=== PATIENT | female | born 1995 | race African-American/Black ===

== ENCOUNTER 2017-04-26 11:47 | Emergency (ER) | payer OTHER ==
[~2017-04-26] VITALS: Ht 175.3 cm; Wt 77.1 kg
[2017-04-26 12:27] LABS: BILIRUBIN,URINE NEGATIVE (NEGATIVE); KETONES,URINE NEGATIVE (NEGATIVE); LEUKOCYTE ESTERASE ,URINE NEGATIVE (NEGATIVE); NITRITE,URINE NEGATIVE (NEGATIVE); PROTEIN,URINE DIPSTICK NEGATIVE (NEGATIVE); URINE UROBILINOGEN 0.2 mg/dL (0.2 - 1)
[2017-04-26 12:37] LABS: CLARITY,URINE CLEAR (CLEAR); COLOR,URINE YELLOW (YELLOW)
[2017-04-26 12:45] LABS: BASOPHILS % 0.2 % (0.0-1.0); EOSINOPHILS # (AUTO) 0.1 (0.0-0.4); EOSINOPHILS % 1.5 % (0.0-6.0); HEMATOCRIT 38.1 % (34.2-44.1); HEMOGLOBIN 12.6 g/dL (12.0-16.0); LYMPHOCYTES # (AUTO) 1.2 (1.0-3.2); LYMPHOCYTES % 24.2 % (18.0-39.1); MEAN CORPUSCULAR HEMOGLOBIN 28.9 pg (28-32); MEAN CORPUSCULAR HGB CONC 33.1 g/dL (31-35); MEAN CORPUSCULAR VOLUME 87.4 fL (81-99); MONOCYTES # (AUTO) 0.8 (0.2-0.8); MONOCYTES % 17.6 % (4.4-11.3); NEUTROPHILS # (AUTO) 2.7 (2.1-6.9); NEUTROPHILS % 56.3 % (38.7-80.0); PLATELET COUNT 238 x10e3/uL (140-360); RED BLOOD COUNT 4.36 x10e6/uL (3.6-5.1); RED CELL DISTRIBUTION WIDTH 13.1 % (11.7-14.4)
[2017-04-26 12:48] LABS: EPITHELIAL CELLS,URINE RARE /LPF; PREGNANCY TEST, URINE POSITIVE (NEGATIVE)
[2017-04-26 13:02] LABS: AMYLASE 70 U/L (25-125)
[2017-04-26 13:08] LABS: ALANINE AMINOTRANSFERASE 16 IU/L (0-55); ALBUMIN 3.9 g/dL (3.5-5.0); ALBUMIN/GLOBULIN RATIO 1.2 (0.8-2.0); ALKALINE PHOSPHATASE 81 IU/L (40-150); BLOOD UREA NITROGEN 8 mg/dL (7-26); BUN/CREATININE RATIO 11 (6-25); CALCIUM 9.1 mg/dL (8.4-10.2); CARBON DIOXIDE 26 mmol/L (22-29); CHLORIDE 108 mmol/L (98-107); EST GLOMERULAR FILTRATION RATE > 60 ML/MIN (60-); GLUCOSE 78 mg/dL (74-118); SODIUM 141 mmol/L (136-145)
[2017-04-26 13:25] LABS: LIPASE 30 U/L (8-78)
[2017-04-26] MEDS ORDERED: REGLAN10 MG PO (14:34)
== END 2017-04-26 14:49 | disposition home or self-care (01) ==
LOC: ER 11:47
DX: R10.84 Generalized abdominal pain (principal)
CPT/HCPCS: 36415; 80053; 81001; 81025; 82150; 83690; 84702; 85025; 99283

== ENCOUNTER 2019-07-30 12:51 | Emergency (ER) | payer BC, OTHER ==
[~2019-07-30] VITALS: Ht 175.3 cm; Wt 77.1 kg
[~2019-07-30 12:51] MED LIST: REGLAN10 MG PO
--- OUTSIDE RECORDS SUMMARY | 2019-07-30 12:54 | XMS REPORT ---
Author Author [facility] Organization [facility] Address Unknown Phone Unavailable Care Team Providers Care Electronics System Mechanic Name Role Phone Tanmay HAWLEY Unavailable Unavailable Problems This patient has no known problems. Allergies, Adverse Reactions, Alerts This patient has no known allergies or adverse reactions. Medications This patient has no known medications. Results Test Description Test Time Test Comments Text Results Atomic Results Result Comments U/S, , COMPLETE, >/=14 WEEKS 2017-07-14 19:23:00 [place] son for exam:- >ABDOMINAL PAIN FINAL REPORT Obs tetrics ultrasound, July 14, 2017 Clinical History: Abdomen pain Discussion: Sonographic evaluation of the gravid uterus is performed transabdominally. A single fetus is identified, in variable presentation. The amniotic/chorionic sac was visualized. The amniotic fluid volume is normal by visual inspection. The amniotic fluid index is 9.31. The maternal uterus and ovaries are grossly unremarkable. The cervix measures 5.0 cm in length, within normal limits. The placenta is posterior and grade zero. The placental cord insertion site is visualized. The re is no placenta previa. A three-vessel cord was visualized. A four-chamber heart was visualized and a heart rate was documented 174 bpm. measurements: BPD3.16 cm(16w zerod + / - one week 2 day)HC12.45 cm16 weeks 2 days + / - 1 week 2 daysAC9.74 cm(15w sixd + / - one week 5 days)FL 2.1 cm(16w twod + / - one week 3 day)SFR023 gm + / - 21 gm, five + / - 1 oz EGA (Sonographic)16w oned + / - onew threedEGA (LMP)16 w three d Impression: Stoner intrauterine gestation. heart tones were documented at one 74 bpm with a four chamber heart visualized. A three-vessel cord was visualized. The measurements correspond to the patient's last menstrual period data gestational age 16 weeks 3 days. Signed: Marisel Rivas MDReport Verified Date/Time: 07/14/2017 19:23:09 Reading Location: [address] Consult Reading Room PREP 2017-07-14 15:32:00 WBC WET PREP (BEAKER) (test code = 528) Few white blood cells se en CLUE CELLS (BEAKER) (test code = 526) No clue cells seen YEAST WET PREP (BEAKER) (test code = 530) No budding yeast seen TRICH WET PREP (BEAKER) (test code = 531) No Trichomonas seen BACT WET PREP (BEAKER) (test code = 532) Many bacteria seen HCG, QUANTITATIVE, [id number] 13:54:00* Test Item Value Reference Range Comments GONADOTROPIN, CHORIONIC (HCG) QUANT (BEAKER) (test code = 64 9) 60810 mIU/mL 0-10 Non- Females: <10 mIU/mL Females: Gestation Age Reference Range(mIU/mL) 0.2-1 Week 5-50 1-2 Weeks 50-500 2-3 Weeks 100-5,000 3-4 Weeks 500-10,000 4-5 Weeks 1,000-50,000 5-6 Weeks 10,000-100,000 6-8 Weeks 15,000-200,000 2-3 Months 10,000-100,000 HEPATIC FUNCTION PANEL 2017-07-14 12:22:00* Test Item Value Reference Range Comments TOTAL PROTEIN (BEAKER) (test code = 770) 6.6 gm/dL 6.0-8.3 ALBUMIN (BEAKER) (test code = 1145) 3.8 g/dL 3.5-5.0 BILIRUBIN TOTAL (BEAKER) (test code = 377) 0.2 mg/dL 0.2-1 .2 BILIRUBIN DIRECT (BEAKER) (test code = 706) 0.1 mg/dL 0.1- 0.5 ALKALINE PHOSPHATASE (BEAKER) (test code = 346) 71 U/L 40-150 AST (SGOT) (BEAKER) (test code = 353) 19 U/L 5-34 ALT (SGPT) (BEAKER) (test code = 347) 15 U/L 6-55 BASIC METABOLIC [id number] 11:53:00* Test Item Value Reference Range Comments SODIUM (BEAKER) (test code = 381) 139 meq/L 136-145 POTASSIUM (BEAKER) (test code = 379) 3.8 meq/L 3.5-5.1 CHLORIDE (BEAKER) (test code = 382) 108 meq/L 98-107 CO2 (BEAKER) (test code = 355) 26 meq/L 22-29 BLOOD UREA NITROGEN (BEAKER) (test code = 354) 4 mg/dL 7 -21 CREATININE (BEAKER) (test code = 358) 0.62 mg/dL 0.57-1.25 GLUCOSE RANDOM (BEAKER) (test code = 652) 88 mg/dL 70-105 CALCIUM (BEAKER) (test code = 697) 9.4 mg/dL 8.4-10.2 EGFR (BEAKER) (test code = 1092) 149 mL/min/1.73 sq m ESTIMATED GFR IS NOT ACCURATE CREATININE CLEARANCE IN PREDICTING GLOMERULAR FILTRATION RATE. ESTIMATED GFR IS NOT APPLICABLE FOR DIALYSIS PATIENTS. URINALYSIS W/ REFLEX URINE [id number] 11:49:00* Test Item Value Reference Range Comments COLOR (BEAKER) (test code = 470) Light Yellow CLARITY (BEAKER) (test code = 469) Clear SPECIFIC GRAVITY UA (BEAKER) (test code = 468) 1.006 1 .001-1.035 PH UA (BEAKER) (test code = 467) 7.0 5.0-8.0 PROTEIN UA (BEAKER) (test code = 464) Negative Negative GLUCOSE UA (BEAKER) (test code = 365) Negative Negative KETONES UA (BEAKER) (test code = 371) Negative Negative BILIRUBIN UA (BEAKER) (test code = 462) Negative Negative BLOOD UA (BEAKER) (test code = 461) Negative Negative NITRITE UA (BEAKER) (test code = 465) Negative Negative LEUKOCYTE ESTERASE UA (BEAKER) (test code = 466) Small Negative UROBILINOGEN UA (BEAKER) (test code = 463) 0.2 mg/dL 0.2-1 .0 RBC UA (BEAKER) (test code = 519) 0 /HPF WBC UA (BEAKER) (test code = 520) 2 /HPF BACTERIA (BEAKER) (test code = 517) Few SQUAMOUS EPITHELIAL (BEAKER) (test code = 516) 5 /HPF SOURCE(BEAKER) (test code = 0215) CBC W/PLT COUNT & AUTO [id number] 11:36:00* Test Item Value Reference Range Comments WHITE BLOOD CELL COUNT (BEAKER) (test code = 775) 7.0 K/ L 3.5-10.5 RED BLOOD CELL COUNT (BEAKER) (test code = 761) 4.00 M/ L 3.93-5.22 HEMOGLOBIN (BEAKER) (test code = 410) 11.7 GM/DL 11.2-15.7 HEMATOCRIT (BEAKER) (test code = 411) 34.7 % 34.1-44.9 MEAN CORPUSCULAR VOLUME (BEAKER) (test code = 753) 86.8 fL 79.4-94.8 MEAN CORPUSCULAR HEMOGLOBIN (BEAKER) (test code = 751) 29.3 pg 25.6-32.2 MEAN CORPUSCULAR HEMOGLOBIN CONC (BEAKER) (test code = 752) 33.7 GM/DL 32.2-35.5 RED CELL DISTRIBUTION WIDTH (BEAKER) (test code = 412) 13.2 % 11.7-14.4 PLATELET COUNT (BEAKER) (test code = 756) 173 K/CU MM 150-45 0 MEAN PLATELET VOLUME (BEAKER) (test code = 754) 11.3 fL 9.4-12.3 NUCLEATED RED BLOOD CELLS (BEAKER) (test code = 413) 0 /100 WBC 0-0 NEUTROPHILS RELATIVE PERCENT (BEAKER) (test code = 429) 73 % LYMPHOCYTES RELATIVE PERCENT (BEAKER) (test code = 430) 16 % MONOCYTES RELATIVE PERCENT (BEAKER) (test code = 431) 10 % EOSINOPHILS RELATIVE PERCENT (BEAKER) (test code = 432) 1 % BASOPHILS RELATIVE PERCENT (BEAKER) (test code = 437) 0 % NEUTROPHILS ABSOLUTE COUNT (BEAKER) (test code = 670) 5.07 K/ L 1.56-6.13 LYMPHOCYTES ABSOLUTE COUNT (BEAKER) (test code = 414) 1.12 K/ L 1.18-3.74 MONOCYTES ABSOLUTE COUNT (BEAKER) (test code = 415) 0.72 K/ L 0.24-0.36 EOSINOPHILS ABSOLUTE COUNT (BEAKER) (test code = 416) 0.04 K/ L 0.04-0.36 BASOPHILS ABSOLUTE COUNT (BEAKER) (test code = 417) 0.02 K/ L 0.01-0.08 IMMATURE GRANULOCYTES-RELATIVE PERCENT (BEAKER) (test code = 280 1) 0 % 0-1 URINALYSIS W/ [id number] 19:27:00* Test Item Value Reference Range Comments COLOR (BEAKER) (test code = 470) Yellow CLARITY (BEAKER) (test code = 469) Clear SPECIFIC GRAVITY UA (BEAKER) (test code = 468) 1.020 1 .001-1.035 PH UA (BEAKER) (test code = 467) 7.5 5.0-8.0 PROTEIN UA (BEAKER) (test code = 464) 20 mg/dL Negative GLUCOSE UA (BEAKER) (test code = 365) Negative Negative KETONES UA (BEAKER) (test code = 371) Negative Negative BILIRUBIN UA (BEAKER) (test code = 462) Negative Negative BLOOD UA (BEAKER) (test code = 461) Large Negative NITRITE UA (BEAKER) (test code = 465) Negative Negative LEUKOCYTE ESTERASE UA (BEAKER) (test code = 466) Negative Negative UROBILINOGEN UA (BEAKER) (test code = 463) 0.2 mg/dL 0.2-1 .0 RBC UA (BEAKER) (test code = 519) 41 /HPF WBC UA (BEAKER) (test code = 520) 2 /HPF BACTERIA (BEAKER) (test code = 517) Rare MUCUS (BEAKER) (test code = 1574) Many SQUAMOUS EPITHELIAL (BEAKER) (test code = 516) 6 /HPF SOURCE(BEAKER) (test code = 2795) Urine, Clean Catch BASIC METABOLIC [id number] 17:42:00* Test Item Value Reference Range Comments SODIUM (BEAKER) (test code = 381) 141 meq/L 136-145 POTASSIUM (BEAKER) (test code = 379) 4.3 meq/L 3.5-5.1 CHLORIDE (BEAKER) (test code = 382) 109 meq/L 98-107 CO2 (BEAKER) (test code = 355) 22 meq/L 22-29 BLOOD UREA NITROGEN (BEAKER) (test code = 354) 7 mg/dL 7 -21 CREATININE (BEAKER) (test code = 358) 0.82 mg/dL 0.57-1.25 GLUCOSE RANDOM (BEAKER) (test code = 652) 91 mg/dL 70-105 CALCIUM (BEAKER) (test code = 697) 9.7 mg/dL 8.4-10.2 EGFR (BEAKER) (test code = 1092) 109 mL/min/1.73 sq m ESTIMATED GFR IS NOT ACCURATE CREATININE CLEARANCE IN PREDICTING GLOMERULAR FILTRATION RATE. ESTIMATED GFR IS NOT APPLICABLE FOR DIALYSIS PATIENTS. CBC W/PLT COUNT & AUTO [id number] 17:14:00* Test Item Value Reference Range Comments WHITE BLOOD CELL COUNT (BEAKER) (test code = 775) 5.6 K/ L 4.0-10.0 RED BLOOD CELL COUNT (BEAKER) (test code = 761) 5.00 M/ L 4.00-5.00 HEMOGLOBIN (BEAKER) (test code = 410) 14.8 GM/DL 12.0-15.0 HEMATOCRIT (BEAKER) (test code = 411) 42.9 % 36.0-45.0 MEAN CORPUSCULAR VOLUME (BEAKER) (test code = 753) 85.7 fL 82.0-99.0 MEAN CORPUSCULAR HEMOGLOBIN (BEAKER) (test code = 751) 29.5 pg 27.0-33.0 MEAN CORPUSCULAR HEMOGLOBIN CONC (BEAKER) (test code = 752) 34.4 GM/DL 32.0-36.0 RED CELL DISTRIBUTION WIDTH (BEAKER) (test code = 412) 13.1 % 10.3-14.2 PLATELET COUNT (BEAKER) (test code = 756) 233 K/CU MM 150-43 0 MEAN PLATELET VOLUME (BEAKER) (test code = 754) 8.4 fL 6.5-10.5 NUCLEATED RED BLOOD CELLS (BEAKER) (test code = 413) 0 /100 WBC 0-0 NEUTROPHILS RELATIVE PERCENT (BEAKER) (test code = 429) 56 % LYMPHOCYTES RELATIVE PERCENT (BEAKER) (test code = 430) 33 % MONOCYTES RELATIVE PERCENT (BEAKER) (test code = 431) 9 % EOSINOPHILS RELATIVE PERCENT (BEAKER) (test code = 432) 1 % BASOPHILS RELATIVE PERCENT (BEAKER) (test code = 437) 1 % NEUTROPHILS ABSOLUTE COUNT (BEAKER) (test code = 670) 3.17 K/ L 1.80-8.00 LYMPHOCYTES ABSOLUTE COUNT (BEAKER) (test code = 414) 1.84 K/ L 1.48-4.50 MONOCYTES ABSOLUTE COUNT (BEAKER) (test code = 415) 0.48 K/ L 0.00-1.30 EOSINOPHILS ABSOLUTE COUNT (BEAKER) (test code = 416) 0.06 K/ L 0.00-0.50 BASOPHILS ABSOLUTE COUNT (BEAKER) (test code = 417) 0.07 K/ L 0.00-0.20 0.00
--- OUTSIDE RECORDS SUMMARY | 2019-07-30 12:54 | XMS REPORT ---
Author Author Admin, Kari Kaitlyn Organization [facility] Address [address] [place] [address] Phone Allergies, Adverse Reactions, Alerts Allergy Name Reaction Description Start Date Severity Status Pr ovider No Known Allergies Yuko Munoz SPD MANAGER Conditions or Problems Problem Name Problem Code Onset Date Status Entry Date Provider Comment Standard Description Annotate Acute gastroenteritis 558.9 Active Blaire madrigal MD Other and unspecified noninfectious gastroenteritis and colitis Sinus congestion 478.19 Active Blaire Garnica MD Other disease of nasal cavity and sinuses Supervision, normal first V22.0 Active Dayanara Pop MD (res) Supervision of normal first Anxiety 300.00 Active Melvin Seymour MD Anxiety state, unspecified Depression, major 296.20 Active Melvin Caicedo Major depressive disorder, single episode, unspecified degree BMI 25.0-25.9 Active Blaire Garnica MD Body Mass Index 25.0-25.9, adult Overweight Active Blaire Garnica MD Overweight Fibrocystic breast changes 610.1 Active 6 Jana Caicedo.Andrew. Diffuse cystic mastopathy Crohn's disease of small AND large intestines 555.2 Active Dayanara Pop MD (res) Regional enterit is of small intestine with large intestine Managed by Dr. Dawkins and Dr. Jimenez at [facility], LEFT HAND 078.10 Active Jana Palomo D.O. Viral warts, unspecified Vaccination against influenza ICD-V04.81 Inacti ve Dayanara Pop MD (res) Depo Provera contraceptive, initial prescription ICD-V25.02 Inactive Anna Han MD (res) Dysmenorrhea ICD-625.3 Inactive Dayanara Pop MD (res) Irregular menstrual cycle 626.4 Inactive Yoshi Garnica MD Irregular menstrual cycle Menometrorrhagia 626.2 Inactive Blaire Garnica MD Excessive or frequent menstruation Menorrhagia ICD-626.2 Inactive Dayanara Pop MD (res) Costochondritis, left ICD-733.6 Inactive Blaire Garnica MD Well child exam ICD-V20.2 Inactive Blaire madrigal MD Scabies ICD-133.0 Inactive Blaire Garnica MD 10/29 Gastroenteritis, viral ICD-008.8 Inactive Yoshi Garnica MD Wart ICD-078.10 Inactive Blaire Garnica MD 10/29 Sinusitis, acute ICD-461.9 Inactive Blaire seaman MD NEED PROPH VACCINATION W/UNSPEC COMB VACCINE ICD-V06.9 3 Inactive Blaire Garnica MD OVARIAN CYST, LEFT ICD-620.2 Inactive Slade Pop MD (res) ULCERATIVE COLITIS 556.9 Inactive Jana Palomo D.O. Ulcerative colitis, unspecified WELL CHILD EXAMINATION ICD-V20.2 Inactive Yoshi Garnica MD TINEA VERSICOLOR ICD-111.0 Inactive Blaire seaman MD FATIGUE ICD-780.79 Inactive Dayanara Caicedo (res) ABDOMINAL PAIN ICD-789.00 Inactive Suresh goncalves MD DIARRHEA ICD-787.91 Inactive Suresh Benton MD Vaccination against influenza V04.81 Resolved 05/05 Dayanara Pop MD (res) Need for prophylactic vaccin ation and inoculation against influenza Depo Provera contraceptive, initial prescription V25.02 05/11 Resolved Melvin Seymour MD Encounter for genera l counseling on initiation of other contraceptive measures Dysmenorrhea 625.3 Resolved Dayanara Pop MD (r es) Dysmenorrhea Menorrhagia 626.2 Resolved Dayanara Pop MD (re s) Excessive or frequent menstruation Heavy, but regular, periods Costochondritis, left 733.6 Resolved Blaire seaman MD Tietze's disease Well child exam V20.2 Resolved Blaire Garnica MD Routine infant or child health check Scabies 133.0 Resolved Blaire Garnica MD Scabies Gastroenteritis, viral 008.8 Resolved Blaire orr MD Intestinal infection due to other organism, not elsewhere classified Wart 078.10 Resolved Blaire Garnica MD Viral warts, unspecified left hand and right hand Sinusitis, acute 461.9 Resolved Blaire Garnica MD Acute sinusitis, unspecified NEED PROPH VACCINATION W/UNSPEC COMB VACCINE V06.9 3 Resolved Blaire Garnica MD Need for prophylacti c vaccination with unspecified combined vaccine OVARIAN CYST, LEFT 620.2 Resolved Dayanara Pop MD (res) Other and unspecified ovarian cyst WELL CHILD EXAMINATION V20.2 Resolved Blaire orr MD Routine or child health check TINEA VERSICOLOR 111.0 Resolved Blaire Garnica MD Pityriasis versicolor FATIGUE 780.79 Resolved Dayanara Pop MD (res) Other malaise and fatigue ABDOMINAL PAIN 789.00 Resolved Jana Palomo D.O. Abdominal pain, unspecified site DIARRHEA 787.91 Resolved Jana Palomo D.O. Diarrhea Medication List Medication Instructions Start Date Stop Date Generic Name NDC Status Provider Patient Instruction FLONASE ALLERGY RELIEF 50 MCG/ACT NASAL SUSPENSION 2 s prays each nostril every day FLUTICASONE PROPIONATE 68377516785 Active Darrian Alonzo MD (res) Active +DHA 28-0.975 & 200 MG ORAL 1 tab By Mouth daily MV-MIN-FE FUM-FA-DHA 60605533045 Active Dayanara Pop MD (res) Active ZOFRAN ODT 4 MG ORAL TABLET DISINTEGRATING take 1 tabl et every 8 hr as needed for vomiting ZOFRAN ODT 4 MG ORAL TABLET DISINTEGRATIN G ONDANSETRON Inactive DICYCLOMINE HCL 10 MG ORAL CAPSULE 05/05 DICYCLOMINE HCL 10 MG ORAL CAPSULE 671606 DICYCLOMINE HCL Inactive SERTRALINE HCL 25 MG ORAL TABLET Take 1 tab By Mouth daily 02/10 SERTRALINE HCL 25 MG ORAL TABLET 744457 SERTRALINE HCL Inactive TYLENOL EXTRA STRENGTH 500 MG ORAL TABLET Use 1-2 by m outh every 6 hours as needed for pain TYLENOL EXTRA STRENGTH 500 MG OR AL TABLET 726438 ACETAMINOPHEN Inactive DEPO-PROVERA 150 MG/ML INTRAMUSCULAR SUSPENSION 150 mg IM ev hussein 3 months DEPO-PROVERA 150 MG/ML INTRAMUSCULAR SUSPENSION 6342957 MEDROXYPROGEST RAMYA (CONTRACEP) Inactive BACLOFEN 10 MG ORAL TABLET one tablet by mouth three t imes a day as needed for muscle spasm BACLOFEN 10 MG ORAL TABLET 510394 BACLOFE N Inactive NAPROXEN 500 MG ORAL TABLET 1 by mouth twice a day as needed for pain and inflammation NAPROXEN 500 MG ORAL TABLET 19790406 NAPROX EN Inactive IBUPROFEN 600 MG ORAL TABLET 1 By Mouth Every 8 hours As Needed pain IBUPROFEN 600 MG ORAL TABLET IBUPROFEN [place] ctive SALICYLIC ACID 17 % EXTERNAL SOLUTION apply to wart wi th bandaid/duct tape. Leave on as long as you can. Remove and scrap with a pumic stone then repeat until gone SALICYLIC ACID 17 % EXTERNAL SOLUTION 312 881 SALICYLIC ACID Inactive IVERMECTIN 3 MG ORAL TABLET 4 pills Q daily Repeat in 10 days 18/04/14 IVERMECTIN 3 MG ORAL TABLET 368752 IVERMECTIN Inac tive [facility] PERMETHRIN 1 % EXTERNAL LOTION apply to head, comb through and leave in 20 minutes, then wash off [facility] PERMETHRIN 1 % FIELD AUDITOR AL LOTION PERMETHRIN Inactive PERMETHRIN 5 % EXTERNAL CREAM Apply to skin from the n aureliano down and leave for 8- 10 hours then rinse. Repeat again in 2 weeks PERMETHRIN 5 % EXTERNAL CREAM 974058 PERMETHRIN Inactive NIZORAL 2 % EXTERNAL SHAMPOO apply to affected area for 3 days, then rinse after 5 minutes NIZORAL 2 % EXTERNAL SHAMPOO 106 336 KETOCONAZOLE (TOPICAL) Inactive AUGMENTIN 500-125 MG ORAL TABLET 1 by mouth twice a day AUGMENTIN 500-125 MG ORAL TABLET 782362 AMOXICILLIN-POT CLAVULANATE Inactive APRISO 0.375 GM ORAL CAPSULE EXTENDED RELEASE 24 HOUR 4 caps ule Every day APRISO 0.375 GM ORAL CAPSULE EXTENDED RELEASE 24 HOUR MESALAMINE Inactive DICYCLOMINE HCL 20 MG ORAL TABLET 1 tab By Mouth four times a da y DICYCLOMINE HCL 20 MG ORAL TABLET 248748 DICYCLOMINE HC L Inactive ONDANSETRON 4 MG ORAL TABLET DISINTEGRATING one tablet By Mouth every 8 hours As Needed nausea ONDANSETRON 4 MG ORAL TABLET DIS INTEGRATING 568702 ONDANSETRON Inactive CLOTRIMAZOLE 1 % EXTERNAL CREAM apply to rash back morning and n ight CLOTRIMAZOLE 1 % EXTERNAL CREAM 876316 CLOTRIMAZOLE Inactive PROTONIX 20 MG ORAL TABLET DELAYED RELEASE 1 by mouth daily 2013 PROTONIX 20 MG ORAL TABLET DELAYED RELEASE 194334 PANTOPRAZOLE SODIUM Inactive ZOFRAN ODT 4 MG ORAL TABLET DISINTEGRATING take 1 tabl et every 8 hr as needed for vomiting ONDANSETRON 50814328818 No Longer Active Mari Alonzo MD (res) Active DICYCLOMINE HCL 10 MG ORAL CAPSULE D ICYCLOMINE HCL 29711308979 No Longer Active Dayanara Pop MD (res) Active SERTRALINE HCL 25 MG ORAL TABLET Take 1 tab By Mouth daily 02/10 SERTRALINE HCL 74597912749 No Longer Active Dayanara Pop MD (res) Active TYLENOL EXTRA STRENGTH 500 MG ORAL TABLET Use 1-2 by m outh every 6 hours as needed for pain ACETAMINOPHEN 01055018260 No Longer A ctive Dayanara Pop MD (res) Active DEPO-PROVERA 150 MG/ML INTRAMUSCULAR SUSPENSION 150 mg IM ev hussein 3 months MEDROXYPROGEST RAMYA (CONTRACEP) 48849778254 N o Longer Active Melvin Seymour MD Active BACLOFEN 10 MG ORAL TABLET one tablet by mouth three t imes a day as needed for muscle spasm BACLOFEN 70473674578 No Longer Active Dayanara Pop MD (res) Active NAPROXEN 500 MG ORAL TABLET 1 by mouth twice a day as needed for pain and inflammation NAPROXEN 44386215006 No Longer Active Melvin Seymour MD Active IBUPROFEN 600 MG ORAL TABLET 1 By Mouth Every 8 hours As Needed pain IBUPROFEN 26017533689 No Longer Active Blaire Garnica MD Ac tive SALICYLIC ACID 17 % EXTERNAL SOLUTION apply to wart wi th bandaid/duct tape. Leave on as long as you can. Remove and scrap with a pumic stone then repeat until gone SALICYLIC ACID 07443846113 No Longer Active Blaire Garnica MD Active IVERMECTIN 3 MG ORAL TABLET 4 pills Q daily Repeat in 10 days 20 18/04/14 IVERMECTIN 55262714495 No Longer Active Blaire Garnica MD Ac tive [facility] PERMETHRIN 1 % EXTERNAL LOTION apply to head, comb through and leave in 20 minutes, then wash off PERMETHRIN 32850823103 No Lo nger Active Blaire Garnica MD Active PERMETHRIN 5 % EXTERNAL CREAM Apply to skin from the n aureliano down and leave for 8- 10 hours then rinse. Repeat again in 2 weeks PE RMETHRIN 73898344612 No Longer Active Melvin Seymour MD Active NIZORAL 2 % EXTERNAL SHAMPOO apply to affected area for 3 days, then rinse after 5 minutes KETOCONAZOLE (TOPICAL) 362039761 08 No Longer Active Balire Garnica MD Active AUGMENTIN 500-125 MG ORAL TABLET 1 by mouth twice a day AMOXICILLIN-POT CLAVULANATE 00593630867 No Longer Active Blaire Garnica MD Active APRISO 0.375 GM ORAL CAPSULE EXTENDED RELEASE 24 HOUR 4 caps ule Every day MESALAMINE 22644886940 No Longer Active Dayanara lopes MD (res) Active DICYCLOMINE HCL 20 MG ORAL TABLET 1 tab By Mouth four times a da y DICYCLOMINE HCL 78304404795 No Longer Active Blaire Garnica MD Active ONDANSETRON 4 MG ORAL TABLET DISINTEGRATING one tablet By Mouth every 8 hours As Needed nausea ONDANSETRON 71763403157 No Longer Active Jana Palomo D.O. Active CLOTRIMAZOLE 1 % EXTERNAL CREAM apply to rash back morning and n ight CLOTRIMAZOLE 62473236727 No Longer Active Jana Palomo D.O. Active PROTONIX 20 MG ORAL TABLET DELAYED RELEASE 1 by mouth daily 2013 PANTOPRAZOLE SODIUM 02190268741 No Longer Active Jana Tellez Active Immunizations Vaccine Administration Date Value Standard Juan Manuel cription influenza immunization (Flu Vax) has been administered 0 given influenza virus vaccine, unspecified formulation meningococcal polysaccharide conjugate vaccine (MCV4) given meningococcal vaccine, unspecified formulation Vital Signs Date Name Value Unit Range Description blood pressure, diastolic 70 mm[Hg] BP peterson blood pressure, systolic 112 mm[Hg] BP sys height E&M 68.5 [in_us] Bdy height pulse rate E&M 94 /min Heart rate respiratory rate E&M 18 /min Resp rate temperature E&M 98.3 [degF] Body temp erature weight E&M 204.25 [lb_av] Weight Measure d blood pressure, diastolic 70 mm[Hg] BP peterson blood pressure, systolic 108 mm[Hg] BP sys height E&M 68 [in_us] Bdy height pulse rate E&M 87 /min Heart rate respiratory rate E&M 20 /min Resp rate temperature E&M 97.8 [degF] Body temp erature weight E&M 191.20 [lb_av] Weight Measure d Diagnostic Results Date Name Value Unit Range Description Lab Report: ABO Grouping and Rho(D) Typi ng, RPR, Rfx Qn RPR/Confirm TP, ... - Blood bank Rh antibody Negative Negative Chart Maintenance: Added labs from GI to the Flowsheet - Hematology hematocrit, blood 40.8 % Chart Maintenance: Added labs from GI to the Flowsheet - Chemistry sodium, serum 140 mmol/L Lab Report: TSH+Free T4, Prolactin - Michelle samir thyroid stimulating hormone, serum 1.170 u[iU]/mL 0 .450-4.500 prolactin, serum 17.7 ng/mL 4.8-23.3 Lab Report: CBC With Differential/Platel et - Hematology neutrophils as percent of blood leukocytes 57 % 40-74 Nurse Visit: Nurse Visit stool results - Chemistry occult blood, stool (E&M) positive Lab Report: CBC With Differential/Platel et - Hematology basophils as percent of blood leukocytes 1 % 0-2 Nurse Visit: Nurse Visit stool results - Chemistry occult blood stool sample #2 positive Lab Report: ABO Grouping and Rho(D) Typi ng, RPR, Rfx Qn RPR/Confirm TP, ... - Blood bank ABO blood group B Lab Report: ABO Grouping and Rho(D) Typi ng, RPR, Rfx Qn RPR/Confirm TP, ... - Serology rapid plasma reagin antibody, serum Non Reactive Non Reactive Office Visit: Family Planning Female Rm 6 Abebe - Chemistry beta HCG, urine, semiquantitative negative Lab Report: Lipid Panel - Chemistry very low density lipoproteins 10 mg/dL 5-40 Lab Report: ABO Grouping and Rho(D) Typi ng, RPR, Rfx Qn RPR/Confirm TP, ... - Chemistry hepatitis B surface antigen Negative Negative Lab Report: Lipid Panel - Chemistry triglyceride, serum, fasting 52 mg/dL 0-89 Chart Maintenance: Added labs from GI to the Flowsheet - Chemistry urea nitrogen, blood 0.7 mg/dL alanine aminotransferase (SGPT), serum 11 U/L Lab Report: CBC With Differential/Platel et - Hematology mean corpuscular hemoglobin, RBC 28.2 pg 26. 6-33.0 mean corpuscular hemoglobin concentration, RBC 32.6 G/DL % 31.5-35.7 erythrocyte (RBC) count 4.44 X10E6/UL 10*6/mm3 3.77-5.28 Chart Maintenance: Added labs from GI to the Flowsheet - Hematology hemoglobin, blood 12.7 g/dL Lab Report: ABO Grouping and Rho(D) Typi ng, RPR, Rfx Qn RPR/Confirm TP, ... - Blood bank Rh antigen Positive Lab Report: CBC With Differential/Platel et - Chemistry Absolute Neutrophils 2.2 X10E3/UL 10*3/uL 1.4-7.0 Lab Report: Lipid Panel - Chemistry LDL cholesterol, serum 103 mg/dL 0-109 Lab Report: CBC With Differential/Platel et - Hematology lymphocytes as percent of blood leukocytes 21 % 14-46 Office Visit: Initial Visit DR. Pop - Audio Video Repairer estimated date of confinement , mother of baby 12/26/2017 Lab Report: CBC With Differential/Platel et - Hematology mean corpuscular volume, RBC 86 fL 79-97 Chart Maintenance: Added labs from GI to the Flowsheet - Genetics/fertility eGFR if 131 mL/min/1.73m2 Lab Report: Lipid Panel - Chemistry HDL cholesterol, serum 67 mg/dL >39 Lab Report: TSH+Free T4, Prolactin - Michelle samir thyroxine, serum, free 1.40 ng/dL 0.93-1.60 Lab Report: CBC With Differential/Platel et - Hematology basophil count, absolute 0.0 x10E3/uL 0.0-0.3 monocytes as percent of blood leukocytes 19 % 4-12 Nurse Visit: Nurse Visit stool results - Chemistry occult blood stool sample #3 positive Chart Maintenance: Added labs from GI to the Flowsheet - Chemistry creatinine, serum 8 mg/dL Lab Report: Lipid Panel - Chemistry cholesterol, serum 180 mg/dL 100-169 Chart Maintenance: Added labs from GI to the Flowsheet - Chemistry bilirubin, serum, total 0.2 mg/dL Lab Report: CBC With Differential/Platel et - Hematology Eosinophil Absolute Count 0.1 X10E3/UL 10*3/uL 0.0-0.4 eosinophils as percent of blood leukocytes 2 % 0-5 Chart Maintenance: Added labs from GI to the Flowsheet - Chemistry blood glucose, random 90 mg/dL aspartate aminotransferase (SGOT), serum 22 U/L Lab Report: CBC With Differential/Platel et - Hematology red blood cell distribution width 14.7 % 12 .3-15.4 leukocyte count, blood 3.8 X10E3/UL 10*3/mm3 3.4-10.8 Office Visit: Initial Visit DR. Pop - Audio Video Repairer estimated delivery date by last menstrual period Chart Maintenance: Added labs from GI to the Flowsheet - Chemistry potassium, serum 3.9 mmol/L Lab Report: CBC With Differential/Platel et - Hematology monocyte count, blood, automated 0.7 X10E3/UL 10*3/uL 0 .1-0.9 Lab Report: CBC With Differential/Platel et - Chemistry immature granulocytes, percentage of total cells, blood 0 % 0-2 Lab Report: CBC With Differential/Platel et - Hematology platelet count 214 X10E3/UL 10*3/mm3 913-688 3044/08/11 lymphocyte count, blood, automated 0.8 X10E3/UL 10*3/mm3 0.7-3.1 Encounters Date Encounter Provider Code Facility 13:12:36 CDT Est Patient Exp Problem - 15009 Blaire shaw MD CPT-02472 [facility] 16:51:27 FIELD TRAINER Est Patient Exp Problem - 78798 Dayanara Pop MD (res) CPT-18359 [facility] 10:02:16 FIELD TRAINER Est Patient Exp Problem - 66495 Melvin dooley MD CPT-47106 [facility] 13:13:56 CDT Est Patient Exp Problem - 31570 Margaret Ramirez MD CPT-77087 [facility] 21:24:24 FIELD TRAINER Est Patient Exp Problem - 71969 Blaire shaw MD CPT-18507 [facility] 09:34:08 CDT Est Patient Exp Problem - 20893 Blaire shaw MD CPT-27046 [facility] 20:29:45 CDT Est Patient Exp Problem - 99290 Blaire shaw MD CPT-02338 [facility] 09:19:47 CDT Est Patient Exp Problem - 52146 Blaire shaw MD CPT-67079 [facility] 10:14:56 FIELD TRAINER Est Patient Exp Problem - 63525 Jana cleaninge D.O. CPT-54305 [facility] 21:05:48 FIELD TRAINER Est Patient Exp Problem - 02450 Melvin dooley MD CPT-63518 [facility] 17:42:29 FIELD TRAINER Est Patient Exp Problem - 19246 Jana dianeaie D.O. CPT-70522 [facility] 06:38:26 CDT Ofc Vst, Est Level III Blaire Garnica MD CPT -04838 [facility] 08:00:17 CDT Est Patient Exp Problem - 30609 Leanna olivares MD CPT-06284 [facility] 17:47:03 CDT Est Patient Problem Focus - 05467 Jana Caicedo.O. CPT-97873 [facility] 12:35:40 CDT Est Patient Exp Problem - 98275 Jana marie D.O. CPT-39026 [facility] 12:09:12 CDT Est Patient Problem Focus - 52210 Jalen Fernandez MD CPT-10819 [facility] 09:08:27 CDT Est Patient Exp Problem - 77865 Lexi Avlarado MD CPT-45370 [facility] 15:17:35 FIELD TRAINER Est Patient Exp Problem - 96947 Jalen rice MD CPT-90765 [facility] Procedures Code Procedure Name Date Entry Date Standard Desc ription CPT-58728 Urine Drug Screen - In House 16:51:28 FIELD TRAINER 2 CPT-62439 Urinalysis - Dip only - In House 16:51:[address] CPT-40393 Urinalysis - - In House 16:51:27 FIELD TRAINER CPT-J1050 Injection, medroxyprogesterone acetate ( Depo), 150 mg 21:24:24 FIELD TRAINER CPT-18879 Destruction Benign Lesion - 1 09:34:08 CDT CPT-18602 Destruction Benign Lesion - 1 21:11:13 CDT CPT-31691 Wart Removal - Up to 15 19:48:21 FIELD TRAINER 05/18 CPT-18704 Wart Removal - Up to 15 19:50:27 FIELD TRAINER 05/05 CPT-23182 Meningococcal Conj Tetravalent (MCV4) 09:21:00 CDT CPT-05642 Admin of Vaccine - Injection - 1 09:21:00 C DT CPT-55183 Est Patient Well Exam (12 - 17 Yrs) - [id number] 2014 14:34:39 FIELD TRAINER CPT-80938 Est Patient Well Exam (12 - 17 Yrs) - [id number] 2014 16:16:48 FIELD TRAINER
--- NOTE | 2019-07-30 13:49 | NUR ---
blood drawn and sent to lab.
--- NOTE | 2019-07-30 15:43 | Diagnostic Imaging Report ---
EXAM: US OB 1st TRIM SINGLE GEST DATE: 07/30/2019 2:33 PM INDICATION: Vaginal bleeding, history of miscarriage COMPARISON: None FINDINGS: The uterus measures 8.0 x 4.4 x 6.1 cm. No intrauterine gestational sac is identified. The endometrial stripe measures 4 mm in maximal thickness and contains a trace amount of fluid. There is no evidence for internal hypervascularity. The right ovary measures 2.6 x 1.9 x 2.3 cm. The left ovary measures 2.3 x 2.4 x 1.9 cm. Normal-sized follicles are noted bilaterally. No abnormal adnexal masses are identified. No free pelvic fluid is visualized. IMPRESSION: In this patient with reported history of recent miscarriage, the endometrium appears grossly unremarkable containing a trace amount of free fluid. No sonographic evidence for abnormal thickening or hypervascularity to suggest retained products of conception. Signed by: Dr. Yousif Kincaid MD on 07/30/2019 3:40 PM
== END 2019-07-30 15:40 | disposition home or self-care (01) ==
LOC: ER 12:51
DX: O03.9 Complete or unspecified spontaneous abortion without complication (principal); I10 Essential (primary) hypertension; E05.90 Thyrotoxicosis, unspecified without thyrotoxic crisis or storm
CPT/HCPCS: 36415; 76801; 84702; 99282